=== PATIENT | female | born 1995 | race African-American/Black ===

== ENCOUNTER 2021-04-21 07:51 | Day surgery (SDC) | payer OTHER ==
[2021-04-21] MEDS ORDERED: Sodium Bicarbonate 2.5 MEQ/5 ML VIAL ONE (08:27)
[2021-04-21] MEDS ORDERED: Lidocaine 1% PF 5 ML VIAL ONE (08:27)
[2021-04-21] MEDS ORDERED: Acetaminophen 500 MG TAB ONE (09:59)
[2021-04-21 10:10] VITALS: TEMP 97.5
[2021-04-21 10:17] LABS: CSF, Glucose 60 mg/dl (40-70); CSF, Protein 20 mg/dL (15-40)
[2021-04-21 10:26] VITALS: BP 98/54
[2021-04-21 11:02] LABS: CSF Source CSF; Clarity Clear (Clear); Tube # 4
[2021-04-21 11:04] LABS: CSF WBC/NonHematics Count-Man 6 /cu.mm (0-5)
[2021-04-21 11:05] LABS: CSF RBC Count - Manual 5 /cu.mm (None Seen)
[2021-04-22 12:38] LABS: Albumin, Fluid Less than 0.2 g/dL (Not Estab.)
[2021-04-24 14:39] LABS: VDRL, CSF Non Reactive (Non Rea:<1:1)
== END 2021-04-21 10:28 | disposition home or self-care (01) ==
LOC: CSHRAD 07:51
PROVIDERS: ATTEND Psychiatry & Neurology Neurology
DX: G37.3 Acute transverse myelitis in demyelinating disease of central nervous system (principal); K21.9 Gastro-esophageal reflux disease without esophagitis; E66.9 Obesity, unspecified; F41.9 Anxiety disorder, unspecified; F32.9 Major depressive disorder, single episode, unspecified; F43.10 Post-traumatic stress disorder, unspecified
CPT/HCPCS: 62270; 82042; 82945; 83916; 84157; 86592; 87205; 87529; 89051

== ENCOUNTER 2021-04-23 08:54 | Emergency (ER) | payer OTHER ==
[2021-04-23] MEDS ORDERED: Ketorolac Tromethamine 30 MG/ML VIAL ONE (09:15)
[2021-04-23] MEDS ORDERED: methylPREDNISolone Sod Succ/PF 125 MG/2 ML VIAL ONE (09:15)
[2021-04-23] MEDS ORDERED: diphenhydrAMINE 50 MG/ML VIAL ONE (09:15)
[2021-04-23] MEDS ORDERED: Magnesium 2 GM/50 ML BAG (IN WATER) ONE (09:16)
[2021-04-23] MEDS ORDERED: Metoclopramide HCl 10 MG/2 ML VIAL ONE (09:16)
== END 2021-04-23 11:06 | disposition home or self-care (01) ==
LOC: CSHERS 08:54
DX: G97.1 Other reaction to spinal and lumbar puncture (principal); K21.9 Gastro-esophageal reflux disease without esophagitis
CPT/HCPCS: 96365; 96366; 96368; 96375; J1200; J1885; J2765; J2930; J3475

== ENCOUNTER 2021-04-24 18:27 | Emergency (ER) | payer OTHER ==
[2021-04-25] MEDS ORDERED: Acetaminophen 500 MG TAB ONE (09:57)
[2021-04-25] MEDS ORDERED: diphenhydrAMINE 50 MG/ML VIAL ONE (11:58)
[2021-04-25] MEDS ORDERED: Metoclopramide HCl 10 MG/2 ML VIAL ONE (11:58)
[2021-04-25] MEDS ORDERED: methylPREDNISolone Sod Succ/PF 125 MG/2 ML VIAL ONE (11:58)
[2021-04-28] MEDS ORDERED: diphenhydrAMINE 50 MG/ML VIAL ONE (13:26)
[2021-04-28] MEDS ORDERED: Metoclopramide HCl 10 MG/2 ML VIAL ONE (13:26)
[2021-04-28] MEDS ORDERED: Ketorolac Tromethamine 30 MG/ML VIAL ONE (13:26)
== END 2021-04-24 19:36 | disposition left against medical advice (07) ==
LOC: CSHERS 18:27
DX: Z53.21 Procedure and treatment not carried out due to patient leaving prior to being seen by health care provider (principal)
CPT/HCPCS: J1200; J1885; J2765; J2930

== ENCOUNTER 2021-04-25 09:08 | Emergency (ER) | payer OTHER | END 2021-04-25 15:02 | disposition home or self-care (01) | LOC: CSHERS 09:08 | DX: G97.1 Other reaction to spinal and lumbar puncture (principal); K21.9 Gastro-esophageal reflux disease without esophagitis | CPT/HCPCS: 96374; 96375 ==

== ENCOUNTER 2021-04-28 12:04 | Emergency (ER) | payer OTHER | END 2021-04-28 15:51 | disposition home or self-care (01) | LOC: CSHERS 12:04 | DX: G97.1 Other reaction to spinal and lumbar puncture (principal); K21.9 Gastro-esophageal reflux disease without esophagitis | CPT/HCPCS: 96365; 96375 ==

== ENCOUNTER 2021-06-06 09:02 | Emergency (ER) | payer OTHER ==
[2021-06-06 09:57] LABS: Bilirubin Neg (Negative); Blood, Urine Negative (Negative); Clarity Clear (Clear); Glucose, Urine (Dipstick) Normal (Negative); Ketone, Urine Negative (Negative); Leukocyte 25 (Negative); Nitrite Negative (Negative); Protein, Urine (Dipstick) Negative (Neg-Trace); Urobilinogen Normal mg/dL (Less than 2)
[2021-06-06 10:01] LABS: #Eosinphils 0.1 10x3/uL (0.0-0.5); #Monocytes 0.7 10x3/uL (0.0-1.1); #Neutrophils 4.6 10x3/uL (1.5-8.4); %Basophils 0.3 % (0.0-2.0); %Lymphocytes 25.1 % (18.0-47.0); %Monocytes 9.4 % (0.0-10.0); %Neutrophils 63.8 % (40.0-75.0); Hemoglobin 11.6 g/dL (12.0-15.5); Mean Corpuscular HGB CONC 32.7 g/dL (32.0-36.0); Mean Corpuscular Hemoglobin 31.4 pg (27.0-33.0); Mean Corpuscular Volume 95.9 fl (81.6-98.3); Mean Platelet Volume 9.8 fl (7.4-10.4); Platelet Count 234 10x3/uL (150-450); RBC Distribution Width 12.9 % (11.5-14.5); White Blood Cell (WBC) Count 7.2 10x3/uL (3.5-10.5)
[2021-06-06 10:12] LABS: Bacteria/HPF 3+ HPF (None Seen); RBC/HPF 0-3 HPF (0-3); WBC/HPF 0-3 HPF (0-3)
== END 2021-06-06 11:56 | disposition home or self-care (01) ==
LOC: CSHERS 09:02
DX: O20.0 Threatened abortion (principal); Z3A.10 10 weeks gestation of pregnancy; O99.611 Diseases of the digestive system complicating pregnancy, first trimester; K21.9 Gastro-esophageal reflux disease without esophagitis
CPT/HCPCS: 81003; 81015; 84702; 85025; 86900; 86901

== ENCOUNTER 2021-11-30 20:18 | Emergency (ER) | payer OTHER ==
[2021-11-30] MEDS ORDERED: Dexamethasone 10 MG/ML VIAL ONE (20:59)
[2021-11-30] MEDS ORDERED: Ketorolac Tromethamine 30 MG/ML VIAL ONE ×2 (20:59→21:00)
== END 2021-11-30 21:29 | disposition home or self-care (01) ==
LOC: CSHERS 20:18
DX: M25.511 Pain in right shoulder (principal); M25.562 Pain in left knee; K21.9 Gastro-esophageal reflux disease without esophagitis; G35 Multiple sclerosis; E66.9 Obesity, unspecified
CPT/HCPCS: 96372; J1100; J1885

== ENCOUNTER 2022-02-19 04:57 | Emergency (ER) | payer OTHER ==
[2022-02-19] MEDS ORDERED: Ketorolac Tromethamine 30 MG/ML VIAL ONE (05:38)
== END 2022-02-19 05:43 | disposition home or self-care (01) ==
LOC: CSHERS 04:57
DX: M25.512 Pain in left shoulder (principal); K21.9 Gastro-esophageal reflux disease without esophagitis
CPT/HCPCS: 96372; 99283; J1885

== ENCOUNTER 2022-07-02 12:49 | Outpatient (CLI) | payer OTHER ==
[~2022-07-02 12:49] MED LIST: Magnevist 469MG/ML 20 ML VIAL ONE
== END 2022-07-02 12:50 | disposition home or self-care (01) ==
LOC: CSHMRI 12:49
PROVIDERS: ATTEND Psychiatry & Neurology Neurology
DX: G35 Multiple sclerosis (principal); R90.82 White matter disease, unspecified; R93.7 Abnormal findings on diagnostic imaging of other parts of musculoskeletal system
CPT/HCPCS: 70553; 72156; 72157; A9579

== ENCOUNTER 2022-11-16 16:48 | Emergency (ER) | payer OTHER | END 2022-11-16 17:09 | disposition left against medical advice (07) | LOC: CSHERS 16:48 | DX: Z53.21 Procedure and treatment not carried out due to patient leaving prior to being seen by health care provider (principal) ==

== ENCOUNTER 2023-06-02 08:02 | Emergency (ER) | payer OTHER ==
[2023-06-02] MEDS ORDERED: Ketorolac Tromethamine 30 MG (1 mL) VIAL ONE (08:38)
== END 2023-06-02 08:43 | disposition home or self-care (01) ==
LOC: CSHERS 08:02
DX: M54.2 Cervicalgia (principal); M25.511 Pain in right shoulder
CPT/HCPCS: 96372; 99283; J1885

== ENCOUNTER 2024-01-03 08:36 | Outpatient (CLI) | payer OTHER ==
[2024-01-03] MEDS ORDERED: Magnevist 469MG/ML 20 ML VIAL ONE ×3 (09:40)
== END 2024-01-03 08:37 | disposition home or self-care (01) ==
LOC: CSHMRI 08:36
PROVIDERS: ATTEND Psychiatry & Neurology Neurology
DX: G35 Multiple sclerosis (principal); R90.82 White matter disease, unspecified; M47.812 Spondylosis without myelopathy or radiculopathy, cervical region
CPT/HCPCS: 70553; 72156; 72157; 76376; A9579